=== PATIENT | female | born 1985 | race Caucasian/White ===

== ENCOUNTER 2019-03-28 11:20 | Outpatient (REF) | payer SELFPAY ==
--- NOTE | 2019-03-28 13:45 | SKI_PTH ---
PATIENT: Aym Hopkins LOC: [facility] U#:[id number] AGE/SX: 33/F ROOM: RE03/28/[address]: Rodo Sage : 1985 BED: DIS: 03/28/2019 SPEC #: [id number] RECD: 03/31/19 12:34 STATUS: LIZBETH REPaul #: [id number] JO-ANN: 03/28/19 13:[address]: Rodo Sage DEPT: Surgical Specimen RECD BY: Mariela Joshua Tissues: 1 - SKIN BIOPSY(SHAVE/PUNCH) Procedures: SKIN LEVEL 4 Comments: [id number]
== END 2019-03-28 11:40 ==
LOC: NCHCN 11:20
PROVIDERS: PCP Specialist/Technologist Athletic Trainer; Visit Provider Specialist/Technologist Athletic Trainer
DX: D22.61 Melanocytic nevi of right upper limb, including shoulder (principal)
CPT/HCPCS: 88305

== ENCOUNTER 2019-04-02 07:52 | Outpatient (REF) | payer OTHER, SELFPAY ==
[2019-04-02 13:38] LABS: HCT 39.6 % (36.0-46.0); HGB 13.3 g/dL (12.0-15.5); Mean Corp. HGB Concentration 33.6 g/dL (32.0-36.0); Mean Corpuscular Hemoglobin 30.4 pg (27.0-33.0); Mean Corpuscular Volume 90.6 fL (80-95); Mean Platelet Volume 11.8 fL (8.0-11.0); Platelet Count 201 x1000/uL (130-400); RBC 4.37 m/cumm (4.00-5.20); RBC Distribution Width 12.3 % (11.7-14.6); White Blood Cell Count 2.84 k/cumm (4.4-10.8)
[2019-04-02 13:46] LABS: ALT 20 U/L (12-78); AST 12 U/L (15-37); Albumin 3.8 g/dL (3.4-5.0); Alkaline Phosphatase 62 U/L (46-116); Anion Gap 9.4 mmol/L (3-11); BUN 9 mg/dL (7-18); Bilirubin, Total 0.2 mg/dL (0.2-1.0); CO2 26.6 mmol/L (21.0-32.0); CREATININE 0.76 mg/dL (0.55-1.02); Calcium 8.7 mg/dL (8.5-10.1); Calculated LDL 98 mg/dL; Chloride 108 mmol/L (98-107); Cholesterol 159 mg/dL (50-200); Glucose 96 mg/dL (70-100); HDL Cholesterol 53 mg/dL (40-60); Potassium 3.9 mmol/L (3.5-5.1); Sodium 144 mmol/L (136-145); Total Protein 6.7 g/dL (6.4-8.2); Triglyceride 44 mg/dL (30-150)
== END 2019-04-02 08:12 ==
LOC: NCHCN 07:52
PROVIDERS: PCP Specialist/Technologist Athletic Trainer; Visit Provider Specialist/Technologist Athletic Trainer
DX: Z00.00 Encounter for general adult medical examination without abnormal findings (principal); Z13.0 Encounter for screening for diseases of the blood and blood-forming organs and certain disorders involving the immune mechanism; Z13.220 Encounter for screening for lipoid disorders; Z13.228 Encounter for screening for other metabolic disorders
CPT/HCPCS: 80053; 80061; 83721; 85027

== ENCOUNTER 2019-04-16 09:44 | Outpatient (REF) | payer OTHER, SELFPAY ==
[2019-04-16 12:37] LABS: Abs Immature Grans 0.01 k/cumm (0.0-0.09); Absolute Basophil Count 0.01 k/cumm (0.0-0.2); Absolute Eosinophil Count 0.05 k/cumm (0.0-0.7); Absolute Lymphocyte Count 1.28 k/cumm (1.2-3.4); Absolute Monocyte Count 0.32 k/cumm (0.11-0.7); Basophils % 0.2; Eosinophils % 1.2; HCT 40.2 % (36.0-46.0); HGB 13.3 g/dL (12.0-15.5); Immature Grans % 0.2; Mean Corp. HGB Concentration 33.1 g/dL (32.0-36.0); Mean Corpuscular Volume 90.7 fL (80-95); Monocytes % 7.7; Neutrophils % 59.7; Platelet Count 169 x1000/uL (130-400); RBC 4.43 m/cumm (4.00-5.20); RBC Distribution Width 12.4 % (11.7-14.6); White Blood Cell Count 4.13 k/cumm (4.4-10.8)
[2019-04-16 12:38] LABS: Absolute Neutrophil Count 2.47 k/cumm (1.2-6.7)
== END 2019-04-16 10:04 ==
LOC: NCHCN 09:44
PROVIDERS: PCP Specialist/Technologist Athletic Trainer; Visit Provider Specialist/Technologist Athletic Trainer
DX: D72.819 Decreased white blood cell count, unspecified (principal)
CPT/HCPCS: 85025

== ENCOUNTER 2019-09-11 11:34 | Outpatient (REF) | payer OTHER, SELFPAY ==
--- NOTE | 2019-09-11 | PAPFT_PTH ---
PATIENT: Amy Hopkins LOC: [facility] U#:[id number] AGE/SX: 34/F ROOM: RE09/11/[address]: Rodo Sage : 1985 BED: DIS: 09/11/2019 SPEC #: [id number] RECD: 09/12/19 12:54 STATUS: LIZBETH REPaul #: [id number] JO-ANN: 09/11/19 00:[address]: Rodo Sage [facility]PT[facility] Cytology RECD BY: Mariela Joshua Tissues: 1 - CX/ENDOCX FOR PAP SMEARS Procedures: PAP THIN PREP/UVM Screening HPV DNA PROBE Comments: [id number]
== END 2019-09-11 11:54 ==
LOC: NCHCN 11:34
PROVIDERS: PCP Specialist/Technologist Athletic Trainer; Visit Provider Specialist/Technologist Athletic Trainer
DX: Z12.4 Encounter for screening for malignant neoplasm of cervix (principal); Z11.51 Encounter for screening for human papillomavirus (HPV); Z01.419 Encounter for gynecological examination (general) (routine) without abnormal findings
CPT/HCPCS: 88142; 87624

== ENCOUNTER 2019-09-11 14:42 | Outpatient (REF) | payer OTHER, SELFPAY ==
[2019-09-11 20:59] LABS: Abs Immature Grans 0.01 k/cumm (0.0-0.09); Absolute Basophil Count 0.02 k/cumm (0.0-0.2); Absolute Eosinophil Count 0.04 k/cumm (0.0-0.7); Absolute Lymphocyte Count 1.01 k/cumm (1.2-3.4); Absolute Monocyte Count 0.26 k/cumm (0.11-0.7); Absolute Neutrophil Count 3.57 k/cumm (1.2-6.7); Basophils % 0.4; Eosinophils % 0.8; HCT 41.9 % (36.0-46.0); HGB 13.9 g/dL (12.0-15.5); Immature Grans % 0.2; Lymphocytes % 20.6; Mean Corp. HGB Concentration 33.2 g/dL (32.0-36.0); Mean Corpuscular Volume 90.3 fL (80-95); Mean Platelet Volume 12.4 fL (8.0-11.0); Monocytes % 5.3; Neutrophils % 72.7; Platelet Count 186 x1000/uL (130-400); RBC 4.64 m/cumm (4.00-5.20); RBC Distribution Width 11.9 % (11.7-14.6); White Blood Cell Count 4.91 k/cumm (4.4-10.8)
== END 2019-09-11 15:02 ==
LOC: NCHCN 14:42
PROVIDERS: PCP Specialist/Technologist Athletic Trainer; Visit Provider Specialist/Technologist Athletic Trainer
DX: D72.819 Decreased white blood cell count, unspecified (principal)
CPT/HCPCS: 85025

== ENCOUNTER 2019-09-15 10:13 | Outpatient (REF) | payer OTHER, SELFPAY ==
[2019-09-16 10:24] LABS: FSH 2.9 mIU/mL (See Note)
== END 2019-09-15 10:33 ==
LOC: NCHCN 10:13
PROVIDERS: PCP Specialist/Technologist Athletic Trainer; Visit Provider Specialist/Technologist Athletic Trainer
DX: R51 Headache (principal)
CPT/HCPCS: 83001

== ENCOUNTER → 2019-09-29 01:41 | Outpatient (CLI) | payer OTHER, SELFPAY ==
--- NOTE | 2019-09-29 07:57 | DI.MRI_ITS ---
EXAM: MR BRAIN WO CLINICAL HISTORY: HEADACHE ATYPICAL, R51 TECHNIQUE: Multiplanar multisequence MRI of the brain was performed. COMPARISON: No exams were available for comparison FINDINGS: VENTRICLES AND EXTRA AXIAL SPACES: Normal in size and morphology for the patient's age. HEMORRHAGE: None. CEREBRAL PARENCHYMA: No focus of restricted diffusion to suggest acute infarct. No space-occupying le thania identified. MIDLINE SHIFT: None. BRAINSTEM/CEREBELLUM: Normal. CALVARIUM: Normal. VISUALIZED PARANASAL SINUSES/MASTOIDS: Clear. OTHER FINDINGS: None. IMPRESSION: Unremarkable MRI of the brain.
== END ==
PROVIDERS: PCP Specialist/Technologist Athletic Trainer; Visit Provider Nurse Practitioner Family
DX: R51 Headache (principal)
CPT/HCPCS: 70551

== ENCOUNTER 2019-10-08 13:43 | Outpatient (CLI) | payer OTHER, SELFPAY ==
[2019-10-08 15:17] LABS: TSH 3.11 uIU/mL (0.36-3.74)
== END 2019-10-08 14:03 ==
PROVIDERS: PCP Specialist/Technologist Athletic Trainer; Visit Provider Nurse Practitioner Adult Health
DX: R51 Headache (principal)
CPT/HCPCS: 36415; 84443

== ENCOUNTER 2020-06-11 14:30 | Emergency (ER) | payer OTHER, SELFPAY ==
[2020-06-11 14:35] VITALS: BP 152/99; PULSE 103; RESP 14; TEMP 36.4; O2SAT 99
--- NOTE | 2020-06-11 14:48 | W.ED.GENAD ---
Discharge Plan Disposition Patient Disposition: HOME Condition: Good Discharge Details Clinical Impression: Right ankle sprain Primary Care Provider: Rodo Sage ED Provider: Gissell Ellsworth Home Meds and New Rx's Prescriptions: Continued amitriptyline 75 mg tablet 75 mg PO QHS Qty: 30 RF: 11 rizatriptan [Maxalt-CLINICAL COURIER] 10 mg tablet,disintegrating 10 mg PO ONCE PRN (Reason: migraine headache) Qty: 10 RF: 2 prochlorperazine maleate 5 mg tablet 5 mg PO TID PRN (Reason: headaches) Qty: 60 RF: 3 Discharge Instructions Instructions: Ankle Sprain (ED) Additional Instructions: Wear ankle splint as directed Continue ice elevation and weight-bearing as tolerated Acetaminophen and/or ibuprofen as directed for pain Referrals: Rodo Sage [Primary Care Provider] - (As needed) Medical Decision Making Patient with ankle sprain approximately 6 days ago. Continues to have pain. Has been able to bear weight. X-ray shows no acute fracture. Ankle lace up applied with ongoing conservative management discussed. She will call follow-up with Dr. Cooney outpatient if not improving in 2 weeks. Medical Records Medical records reviewed: Yes I reviewed the patient's medical records. HPI General Mode of arrival: ambulatory. Date/Time Provider Initiated Documentation: 06/11/20 14:35. Limitations to Documentation: no limitations. Information obtained by: patient. HPI Narrative: Right ankle pain since twist injury 6 days ago. Has been able to bear weight but pain she states is not improving. She has not been taking any [id number] NSAIDs for her symptoms There was no other injuries noted. This was a mechanical fall Related Data Home Medications Medication Instructions Recorded Confirmed rizatriptan 10 mg disintegrating 10 mg PO ONCE PRN #10 tab 11/05/19 06/11/20 tablet prochlorperazine maleate 5 mg 5 mg PO TID PRN #60 tab 01/28/20 06/11/20 tablet amitriptyline 75 mg tablet 75 mg PO QHS #30 tab 05/26/20 06/11/20 Previous Rx's Medication Instructions Recorded rizatriptan 10 mg disintegrating 10 mg PO ONCE PRN #10 tab 11/05/19 tablet prochlorperazine maleate 5 mg 5 mg PO TID PRN #60 tab 01/28/20 tablet amitriptyline 75 mg tablet 75 mg PO QHS #30 tab 05/26/20 Allergies Allergy/AdvReac Type Severity Reaction Status Date / Time morphine Allergy Severe Verified 06/11/20 14:45 varenicline [From Chantix] Allergy Severe Verified 06/11/20 14:45 General Stated Complaint: Orthopedic ALKA: 4 Review of Systems All systems reviewed & are unremarkable except as noted in HPI and below Musculoskeletal Musculoskeletal: Reports arthralgias (right ankle,lateral) and Reports joint swelling [facility] Medical History (Updated 06/11/20 @ 15:41 by Gissell Ellsworth NP) History of chicken pox Leukopenia Migraine headache without aura Nevus Salivary gland disease Torticollis Surgical History H/O tubal ligation Hx of section Social History Smoking/Tobacco Use Status: Former Tobacco Use Alcohol Intake: never Drug use: Never Household members: spouse and children Number of Children: 2 What is your relationship status?: Panel score (0-1 are the most socially isolated patients): 1 Seatbelt use: always Do you feel safe in your relationship?: Yes Exam Const General: cooperative, healthy appearing and comfortable Nutritional Appearance: average body habitus Orientation: alert, awake and oriented x3 HENMT Head: normal to inspection, normocephalic and atraumatic Mouth: oral mucosae normal Skin General skin exam: no rashes or lesions noted Extrem Right lower extremity: edema (Minimal to lateral malleolus no pain over fourth and fifth metatarsal ) Course Vital Signs Vital signs: Vital Signs Temperature 36.4 C L 06/11/20 14:35 Pulse 103 H 06/11/20 14:35 Respiratory Rate 14 06/11/20 14:35 Blood Pressure 152/99 H 06/11/20 14:35 Pulse Oximetry 99 06/11/20 14:35 Temperature 36.4 C L 06/11/20 14:35 Temperature Source Skin 06/11/20 14:35 Pulse 103 H 06/11/20 14:35 Respiratory Rate 14 06/11/20 14:35 Respiratory Effort 06/11/20 14:40 Blood Pressure 152/99 H 06/11/20 14:35 Blood Pressure Position Sitting 06/11/20 14:35 Pulse Oximetry 99 06/11/20 14:35 Oxygen Delivery Method Room Air 06/11/20 14:35 Oxygen Flow Rate 0 06/11/20 14:35 Pain Level 2 06/11/20 14:35
--- NOTE | 2020-06-11 15:15 | DI.RAD_ITS ---
EXAM: XR ANKLE RT COMPLETE CLINICAL HISTORY: trauma, medial TECHNIQUE: 2D digital imaging was performed. COMPARISON: No exams were available for comparison FINDINGS: There is mild soft tissue swelling. There is no fracture or ankle mortise widening. IMPRESSION: Soft tissue swelling
== END 2020-06-11 16:00 | disposition home or self-care (01) ==
PROVIDERS: Emergency Provider Nurse Practitioner Acute Care; PCP Specialist/Technologist Athletic Trainer
DX: S93.491A Sprain of other ligament of right ankle, initial encounter (principal); X50.9XXA Other and unspecified overexertion or strenuous movements or postures, initial encounter
CPT/HCPCS: 29515; 99283; 73610; L1902

== ENCOUNTER 2020-08-16 14:50 | Outpatient (REF) | payer OTHER, SELFPAY ==
[2020-08-18 00:48] LABS: Patient Race White; SARS-CoV-2 RNA Undetected (Undetected); SARS-CoV-2 Specimen Source Nasal
== END 2020-08-16 15:10 ==
LOC: LBN 14:50
PROVIDERS: PCP Specialist/Technologist Athletic Trainer; Visit Provider Nurse Practitioner Family
DX: Z11.59 Encounter for screening for other viral diseases (principal)
CPT/HCPCS: U0003

== ENCOUNTER 2020-08-26 23:06 | Outpatient (REF) | payer OTHER, SELFPAY ==
[2020-08-29 16:48] LABS: COVID-19 RT-PCR Result NEGATIVE (Negative)
== END 2020-08-26 23:26 ==
LOC: NCHCN 23:06
PROVIDERS: PCP Specialist/Technologist Athletic Trainer; Visit Provider Nurse Practitioner Family
DX: Z11.59 Encounter for screening for other viral diseases (principal)
CPT/HCPCS: U0003

== ENCOUNTER 2020-09-20 19:22 | Outpatient (REF) | payer OTHER, SELFPAY ==
[2020-09-21 21:26] LABS: COVID-19 RT-PCR Result NEGATIVE (Negative)
== END 2020-09-20 19:42 ==
LOC: NCHCN 19:22
PROVIDERS: PCP Specialist/Technologist Athletic Trainer; Visit Provider Nurse Practitioner Family
DX: Z20.828 Contact with and (suspected) exposure to other viral communicable diseases (principal)
CPT/HCPCS: U0003

== ENCOUNTER → 2020-09-22 16:29 | Outpatient (REF) | payer OTHER, SELFPAY ==
[2020-09-22 20:03] LABS: Abs Immature Grans 0.01 10^3/uL (0.0-0.06); Absolute Basophil Count 0.02 10^3/uL (0.0-0.2); Absolute Eosinophil Count 0.15 10^3/uL (0.0-0.7); Absolute Monocyte Count 0.25 10^3/uL (0.1-0.8); Absolute Neutrophil Count 2.44 10^3/uL (1.2-6.7); Basophils % 0.5; Eosinophils % 3.6; HCT 37.8 % (36.0-46.0); HGB 12.1 g/dL (11.2-15.7); Immature Grans % 0.2; Lymphocytes % 31.2; MCH 28.9 pg (27.0-33.0); MCV 90.4 fL (80-95); MPV 10.8 fL (8.0-11.0); Neutrophils % 58.5; Nucleated RBC 0 %; Platelet Count 220 10^3/uL (130-400); RBC 4.18 10^6/uL (3.93-5.22); RDW 12.4 % (11.7-14.6); RDW-SD 40.7 fL; WBC 4.17 10^3/uL (4.4-10.8)
[2020-09-22 20:17] LABS: Anion Gap 9.7 mmol/L (3-11); BUN 8 mg/dL (7-18); C-Reactive Protein 1.84 mg/dL (0.0-0.3); CO2 29.3 mmol/L (21.0-32.0); CREATININE 0.57 mg/dL (0.55-1.02); Calcium 9.1 mg/dL (8.5-10.1); Chloride 102 mmol/L (98-107); Glucose 107 mg/dL (74-106); Potassium 3.9 mmol/L (3.5-5.1); Sodium 141 mmol/L (136-145)
[2020-09-22 21:09] LABS: ESR 39 mm/hr (0-20)
== END ==
LOC: NCHCN 16:29
PROVIDERS: PCP Specialist/Technologist Athletic Trainer; Visit Provider Nurse Practitioner Family
DX: M79.18 Myalgia, other site (principal); R68.83 Chills (without fever)
CPT/HCPCS: 80048; 85652; 85025; 86140

== ENCOUNTER → 2020-09-28 10:38 | Outpatient (REF) | payer OTHER, SELFPAY ==
[2020-09-28 13:29] LABS: Bilirubin Negative (Negative); Blood Negative (Negative); Clarity Clear (Clear); Glucose Negative (Negative); Ketones Negative (Negative); Leukocyte Esterase Negative (Negative); Nitrite Negative (Negative); Specific Gravity 1.025 (1.005-1.025); Urobilinogen 0.2 EU/dL (Up TO 0.2); pH 5.5 (5-8)
[2020-09-28 13:33] LABS: Abs Immature Grans 0.02 10^3/uL (0.0-0.06); Absolute Basophil Count 0.03 10^3/uL (0.0-0.2); Absolute Eosinophil Count 0.17 10^3/uL (0.0-0.7); Absolute Lymphocyte Count 1.24 10^3/uL (1.2-3.4); Absolute Monocyte Count 0.29 10^3/uL (0.1-0.8); Absolute Neutrophil Count 2.49 10^3/uL (1.2-6.7); Basophils % 0.7; HCT 37.8 % (36.0-46.0); HGB 12.4 g/dL (11.2-15.7); Immature Grans % 0.5; Lymphocytes % 29.2; MCH 29.2 pg (27.0-33.0); MCHC 32.8 % (32.0-36.0); MCV 88.9 fL (80-95); MPV 10.8 fL (8.0-11.0); Monocytes % 6.8; Neutrophils % 58.8; Nucleated RBC 0 %; Platelet Count 243 10^3/uL (130-400); RBC 4.25 10^6/uL (3.93-5.22); RDW 12.2 % (11.7-14.6); RDW-SD 39.9 fL; WBC 4.24 10^3/uL (4.4-10.8)
[2020-09-28 14:08] LABS: ALT 25 U/L (14-59); AST 14 U/L (15-37); Albumin 3.7 g/dL (3.4-5.0); Alkaline Phosphatase 125 U/L (46-116); Anion Gap 11.4 mmol/L (3-11); BUN 9 mg/dL (7-18); Bilirubin, Total 0.3 mg/dL (0.2-1.0); C-Reactive Protein 1.02 mg/dL (0.0-0.3); CO2 25.6 mmol/L (21.0-32.0); CREATININE 0.81 mg/dL (0.55-1.02); Calcium 8.9 mg/dL (8.5-10.1); Chloride 103 mmol/L (98-107); Glucose 109 mg/dL (74-106); Potassium 3.9 mmol/L (3.5-5.1); Sodium 140 mmol/L (136-145); Total Protein 7.5 g/dL (6.4-8.2)
[2020-09-28 14:11] LABS: ESR 34 mm/hr (0-20)
[2020-09-29 10:49] LABS: HIV-1/2 Ag & Ab Screen Negative (Negative)
[2020-09-29 11:47] LABS: Lyme Ab w Rflx to Lyme Confirm Negative (Negative)
[2020-09-29 14:53] LABS: ANA Interpretation Positive (Negative); ANA Titer Pattern 1:160 Speckled
[2020-09-30 00:30] LABS: Anaplasma phagocytophilum Negative (Negative); B. miyamotoi PCR Negative (Negative); Babesia divergens/MO-1 Negative (Negative); Babesia duncani Negative (Negative); Babesia microti Negative (Negative); Ehrlichia chaffeensis Negative (Negative); Ehrlichia ewingii/canis Negative (Negative); Ehrlichia muris eauclairensis Negative (Negative)
[2020-09-30 14:03] LABS: Toxoplasma Ab, IgG Negative (Negative); Toxoplasma Ab, IgM Negative (Negative); Toxoplasma IgG Value <3 IU/mL
== END ==
LOC: NCHCN 10:38
PROVIDERS: PCP Specialist/Technologist Athletic Trainer; Visit Provider Nurse Practitioner Family
DX: R51.9 Headache, unspecified (principal); R53.83 Other fatigue; M79.18 Myalgia, other site; Z11.4 Encounter for screening for human immunodeficiency virus [HIV]
CPT/HCPCS: 80053; 85652; 87389; 87798; 81003; 85025; 86038; 86140; 86618; 86777; 86778

== ENCOUNTER → 2020-10-04 10:46 | Outpatient (CLI) | payer OTHER, SELFPAY ==
--- NOTE | 2020-10-04 | DI.RAD_ITS ---
EXAM: XR CHEST 2V PA LATERAL CLINICAL HISTORY: SOB R06.02 TECHNIQUE: 2D digital imaging was performed. COMPARISON: No exams were available for comparison FINDINGS: MEDIASTINUM: Normal. HEART: Normal. PULMONARY VASCULATURE: Normal. LUNGS: Clear. PLEURAL SPACE: No pleural effusion or pneumothorax. BONE:Within normal limits for the patient's age. OTHER FINDINGS:Normal. IMPRESSION: No acute pulmonary findings. DATA REPOSITORY: RADIATION DOSE DELIVERED:
== END ==
PROVIDERS: PCP Specialist/Technologist Athletic Trainer; Visit Provider Nurse Practitioner Family
DX: R06.02 Shortness of breath (principal)
CPT/HCPCS: 71046

== ENCOUNTER 2022-01-26 15:20 | Outpatient (REF) | payer OTHER, SELFPAY ==
[2022-01-26 15:48] LABS: Anion Gap 9.7 mmol/L (3-11); BUN 7 mg/dL (7-18); CO2 26.3 mmol/L (21.0-32.0); CREATININE 0.6 mg/dL (0.55-1.02); Calcium 8.2 mg/dL (8.5-10.1); Chloride 107 mmol/L (98-107); Glucose 79 mg/dL (74-106); Potassium 3.5 mmol/L (3.5-5.1); Sodium 143 mmol/L (136-145); TSH (W/Ref FT4) 1.62 uIU/mL (0.36-3.74)
[2022-01-26 22:45] LABS: Prolactin 5.6 ng/mL (See Note)
== END 2022-01-26 15:21 | disposition home or self-care (01) ==
LOC: NCHCN 15:20
PROVIDERS: PCP Nurse Practitioner Family; Visit Provider Nurse Practitioner Family
DX: N64.52 Nipple discharge (principal)
CPT/HCPCS: 80048; 84146; 84443

== ENCOUNTER → 2022-02-02 03:00 | Outpatient (CLI) | payer OTHER, SELFPAY ==
--- NOTE | 2022-02-02 | DI.MAMMO_ITS ---
Exam(s) MG MAMMO DIAGNOSTIC UNI US BREAST RT COMPLETE EXAM: MG MAMMO DIAGNOSTIC UNI and U/S breast RT complete CLINICAL HISTORY: DIAGNOSTIC, RT NIPPLE DISCHARGE, N64.52,RT BREAST MASS S/P TRAUMA. TECHNIQUE: Craniocaudal and mediolateral oblique Full Field Digital Mammography views with Computer Aided Diagnosis followed by Tomosynthesis and right breast ultrasound. COMPARISON: This is a baseline examination. There are no priors for comparison. FINDINGS: Mammography/Tomosynthesis: Unilateral right mammogram was performed. Masses/Architectural Distortion: There is a well-circumscribed nodule in the medial right breast. It appears to lie at the 2 to 3 o'clock position. No suspicious masses or areas of architectural disto rtion are present. Microcalcifictions: No suspicious pleomorphic-type are seen. Skin Thickening/Nipple Retraction: None. Right breast US: Echotexture: Normal appearance of the glandular tissue. Shadowing: No suspicious foci. Cyst: Multiple clusters of cysts are seen in the right breast. There is a 1.1 x 0.5 cm collection of cysts at the 2 o'clock position 3 cm from the nipple. There is a 0.6 cm simple cyst at the 6 o'cloc k position 2 cm from the nipple. There is a cluster of cysts in the retroareolar region of the right breast measuring 1.2 cm in aggregate. No suspicious cysts or solid masses are seen. Solid lesions: None seen. Ductal dilation: None. IMPRESSION: 1. No evidence of malignancy is noted. 2. A six-month follow-up complete right mammogram is recommended for re-evaluation. 3. The findings were discussed with the patient on the date of the examination. BI-RADS Category 3 - 6 month - Probably Benign Finding: Recommend follow-up imaging in 6 months Breast Density - Category C - Heterogeneously dense Breast density Category C or D implies that the patient has dense breast tissue. Dense breast tissue can make it harder to find cancer on a mammogram. Dense breast tissue is also associated with an incr eased risk of breast cancer. This information about the result of the mammogram report was provided to the patient to raise their awareness. Use this report when you speak with the patient about their risks for breast cancer, which includes their family history. At that time, you may recommend additional screening tests (Ultrasoun d or MRI) as these tests may add significant information. A negative radiographic report should not delay biopsy if a dominant or clinically suspicious mass is present. Up to ten percent of cancers are not identified on mammography. A negative report may reinforce clinical impression. Adenosis and dense breasts may obscure an underlying neoplasm. False positive reports average 6 to 10%. Patient will receive a letter notifying them of these results.
== END ==
PROVIDERS: PCP Nurse Practitioner Family; Visit Provider Nurse Practitioner Family
DX: N64.52 Nipple discharge (principal); N63.12 Unspecified lump in the right breast, upper inner quadrant; N60.11 Diffuse cystic mastopathy of right breast
CPT/HCPCS: 76642; 77061; 77065; G0279

== ENCOUNTER → 2022-08-17 03:10 | Outpatient (CLI) | payer OTHER, SELFPAY ==
--- NOTE | 2022-08-17 09:53 | DI.MAMMO_ITS ---
Exam(s) MG MAMMO DIAGNOSTIC UNI EXAM: MAMMO DIAGNOSTIC UNI CLINICAL HISTORY: 6-MO F/U RT BREAST FOR RT BREAST CYSTS, N60.01 TECHNIQUE: Mammograms were interpreted according to the usual protocol including computer analysis w [employer] CAD system, tomosynthesis and C-view imaging. COMPARISON: FINDINGS: Right breast mammogram was obtained today to follow nodularity seen on prior mammogram of January 2022. No change in appearance of medially located well circumscribed right breast nodule which was identifi ed at ultrasound as a cyst. No other significant change seen. Heterogeneously dense breast parenchy ma noted, no dominant mass or clumped microcalcification. IMPRESSION: No specific evidence of malignancy at this time. I would suggest that routine screening examinations resume with a bilateral mammogram in 6 months. BI-RADS Category 3 - 6 month - Probably Benign Finding: Recommend follow-up mammography in 6 months Breast Density - Category C - Heterogeneously dense
== END ==
PROVIDERS: Visit Provider Nurse Practitioner Family
DX: N60.01 Solitary cyst of right breast (principal); R92.8 Other abnormal and inconclusive findings on diagnostic imaging of breast
CPT/HCPCS: 77061; 77065; G0279

== ENCOUNTER 2023-02-13 03:03 | Outpatient (CLI) | payer OTHER, SELFPAY ==
--- NOTE | 2023-02-13 | DI.MAMMO_ITS ---
Exam(s) MAMMO SCREENING EXAM: MAMMO SCREENING CLINICAL HISTORY: SCREENING MAMMO FOR BREAST CANCER Z12.39. TECHNIQUE: Bilateral full field digital CC and MLO mammographic images were obtained with 3D tomosyn thesis and utilizing computer aided detection (CAD). COMPARISON: Prior baseline mammogram reviewed. FINDINGS: The fibroglandular tissue pattern is again noted be dense, this somewhat decreasing the sensitivity o f the mammogram for finding hidden underlying lesions. There are no CAD designations. Nodular density medially in the right breast is again noted, slightly increased in size, presently me asuring approximately 12 by 6 mm. This is located 6 cm in from the nipple in the medial aspect of th e right breast. Additional views and ultrasound recommended. There are no malignant-appearing micro calcification groups in this region nor elsewhere in either breast. There is no significant architectural distortion nor skin thickening-retraction. IMPRESSION: 1. No radiographic evidence of malignancy in the left breast. 2. Medial right breast nodule appears to have slightly increased in size from the baseline mammogram of January 2022. Stat spot compression CC view and complete right breast ultrasound is recommended. BI-RADS Category 0 - Assessment Incomplete: Need additional imaging evaluation Breast Density - Category C - Heterogeneously dense Breast density Category C or D implies that the patient has dense breast tissue. Dense breast tissue can make it harder to find cancer on a mammogram. Dense breast tissue is also associated with an incr eased risk of breast cancer. This information about the result of the mammogram report was provided to the patient to raise their awareness. Use this report when you speak with the patient about their risks for breast cancer, which includes their family history. At that time, you may recommend additional screening tests (Ultrasoun d or MRI) as these tests may add significant information. A negative radiographic report should not delay biopsy if a dominant or clinically suspicious mass is present. Up to ten percent of cancers are not identified on mammography. A negative report may reinforce clinical impression. Adenosis and dense breasts may obscure an underlying neoplasm. False positive reports average 6 to 10%. Patient will receive a letter notifying them of these results.
== END 2023-02-13 03:23 ==
LOC: DI 03:03
PROVIDERS: PCP Nurse Practitioner Family; Visit Provider Nurse Practitioner Family
DX: Z12.31 Encounter for screening mammogram for malignant neoplasm of breast (principal)
CPT/HCPCS: 77063; 77067

== ENCOUNTER 2023-02-19 02:16 | Outpatient (CLI) | payer OTHER, SELFPAY ==
--- NOTE | 2023-02-19 | DI.MAMMO_ITS ---
Exam(s) MG MAMMO SCREEN CALL BACK UNI US BREAST RT LIMITED EXAM: MG MAMMO SCREEN CALL BACK UNI and U/S breast RT limited CLINICAL HISTORY: SLIGHTLY INCREASED NODULE RT BREAST R92.8 ABNL MAMMO. TECHNIQUE: Craniocaudal and mediolateral oblique Full Field Digital Mammography views of the right b reast with Computer Aided Diagnosis followed by Tomosynthesis and right breast ultrasound. COMPARISON: Comparison is made with prior examinations. FINDINGS: Mammography/Tomosynthesis: Masses/Architectural Distortion: There is a well-circumscribed nodule in the medial right breast on t he craniocaudad view. It is unchanged in size compared to the prior examinations. There are no susp icious areas of architectural distortion present. Microcalcifictions: No suspicious pleomorphic-type are seen. Skin Thickening/Nipple Retraction: None. Limited right breast US: Echotexture: Normal appearance of the glandular tissue. Shadowing: No suspicious foci. Cyst: There is again seen a microcysts collection at the 2 o'clock position 3 cm from the nipple beverly uring 1.1 cm x 0.6 cm. It is grossly unchanged. No suspicious cysts are seen. Solid lesions: None seen. Ductal dilation: Normal-appearing ducts are seen at the 6 o'clock position 2 cm from the nipple. IMPRESSION: 1. No evidence of malignancy is noted. 2. Unless there is more urgent need, follow-up screening mammography is recommended, as per [place] [employer] guidelines. 3. The findings were discussed with the patient on the date of the examination. BI-RADS Category 2 - Benign Findings Breast Density - Category C - Heterogeneously dense Breast density Category C or D implies that the patient has dense breast tissue. Dense breast tissue can make it harder to find cancer on a mammogram. Dense breast tissue is also associated with an incr eased risk of breast cancer. This information about the result of the mammogram report was provided to the patient to raise their awareness. Use this report when you speak with the patient about their risks for breast cancer, which includes their family history. At that time, you may recommend additional screening tests (Ultrasoun d or MRI) as these tests may add significant information. A negative radiographic report should not delay biopsy if a dominant or clinically suspicious mass is present. Up to ten percent of cancers are not identified on mammography. A negative report may reinforce clinical impression. Adenosis and dense breasts may obscure an underlying neoplasm. False positive reports average 6 to 10%. Patient will receive a letter notifying them of these results.
== END 2023-02-19 02:36 ==
LOC: DI 02:16
PROVIDERS: PCP Nurse Practitioner Family; Visit Provider Nurse Practitioner Family
DX: Z12.31 Encounter for screening mammogram for malignant neoplasm of breast (principal); R92.8 Other abnormal and inconclusive findings on diagnostic imaging of breast
CPT/HCPCS: 76642; 77063; 77067

== ENCOUNTER 2024-10-27 18:00 | Outpatient (REF) | payer OTHER, SELFPAY ==
[2024-10-27 21:51] LABS: COVID-19 PCR Negative (Negative); Influenza A PCR Negative (Negative); Influenza B PCR Negative (Negative)
[2024-10-27 21:58] LABS: RSV PCR Positive (Negative)
[2024-10-27 21:59] LABS: Source Nasopharynx
== END 2024-10-27 18:01 | disposition home or self-care (01) ==
LOC: LBN 18:00
PROVIDERS: PCP Nurse Practitioner Family; Visit Provider Nurse Practitioner Family
DX: J06.9 Acute upper respiratory infection, unspecified (principal)
CPT/HCPCS: 87637